=== PATIENT | female | born 1995 | race Caucasian/White ===

== ENCOUNTER 2020-07-16 23:45 | Inpatient (IN) ==
[2020-07-17] MEDS ORDERED: OXYTOCIN 30 UNITS/500 ML BAG IV PRN ×2 (00:12→04:06)
--- NOTE | 2020-07-17 00:18 | History & Physical Report ---
Date of Service July 17, 2020 Assessment & Plan (1) Active labor at term: (2) SROM (spontaneous rupture of membranes): (3) Supervision of normal intrauterine in primigravida: admit, iv, labs, likely desires epidural. fhts categ 1. History of Present Illness Chief Complaint: leaking fluid since 1025pm 07/16/20 and now with contractions Primary Care Provider: Karina Brock 25yo at 37wks ega presents to L&D with above cc. Leaking fluid and ctx worsened since then. Feels pain. No vb. +FM. PNC uncomplicated PNL RH pos, RI, GBS neg. OBH: g1 GYNH: nl paps no stds Allergies Allergy/AdvReac Type Severity Reaction Status Date / Time No Known Drug Allergies Allergy Verified 07/12/20 14:15 Home Medications Medication Instructions Recorded Confirmed Type [id number]-[id number]-omega 3-fat com #1 PO 01/25/20 07/12/20 History breast pump #1 ea 06/13/20 07/12/20 Rx Patient History Medical History (Updated 07/17/20 @ 00:15 by Razia Moody MD, FACOG) Syncope Family History Father Hypertension Grandfather (Maternal) Heart disease Social History Smoking Status: Never smoker marital status: marital status details: Rodolfo (27) [phone] Current Living Situation: Spouse Current Living Situation Comment: lives with spouse, no pets current occupational status: employed 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, at [employer] Feels Safe at Home: Yes Review of Systems no fever Physical Exam Constitutional: WD/WN, vitals as above Respiratory: normal respiratory effort, lungs clear to auscultation Cardiovascular: Rate/Rhythm: regular rate and regular rhythm Gastrointestinal (Abdomen): soft gravid nt Musculoskeletal: no edema nontender calves Neurologic: grossly normal Psychiatric: A+Ox3, euthymic affect Genitourinary: OB Exam Abdomen: + estimated weight (7#) Manual OB Exam: + cervical dilation 4 cm, + cervical effacement 90%, + station -1 and + amniotic fluid (Gross SROM) clear, nitrazine positive and ferning present OB Exam Monitor Tracing: + external FHT monitor used (140 mod variability ), + external uterine monitor used (q2), + category I and + normal FHT variability Results & Data ([facility]) Vital Signs (Past 12 Hours) Vital Signs Pulse BP 07/16/20 23:57 104 H 127/81 Coding Level of Care Code None Diagnoses Active labor at term SROM (spontaneous rupture of membranes) Supervision of normal intrauterine in primigravida Z34.00
[2020-07-17 00:29] LABS: Hematocrit (blood only) 37.3 % (37-47); Hemoglobin 12.6 g/dL (12.0-16.0); Mean Corpuscular Hemoglobin 30.1 pg (25-34); Mean Corpuscular Hgb Conc 33.8 g/dL (32-36); Mean Platelet Volume 10.5 fL (7.4-10.4); Platelet Count 211 K/uL (130-400); RDW Coefficient of Variation 13.3 % (11.5-14.5); RDW Standard Deviation 43.1 fL (36.4-46.3); Red Blood Count 4.19 M/uL (4.2-5.4); White Blood Count 12.16 K/uL (4.8-10.8)
[2020-07-17] MEDS: LACTATED RINGER'S 1,000 ML IV PRN ×2 (00:30→02:17)
[2020-07-17] MEDS ORDERED: SODIUM CHLORIDE 0.9% INJ 10 ML VIAL ONE (00:55)
[2020-07-17] MEDS ORDERED: ePHEDrine sulfate 50 MG/ML AMP ONE (00:55)
[2020-07-17] MEDS ORDERED: BUPIVACAINE 0.25% 30 ML VIAL ONE (00:56)
[2020-07-17] MEDS ORDERED: fentaNYL citrate 100 MCG/2 ML VIAL ONE (00:56)
[2020-07-17] MEDS ORDERED: fentaNYL 2MCG/ML ROPIVACAINE 1.25MG/ML 100 ML BAG EPI ONE (00:57)
--- NOTE | 2020-07-17 01:59 | Anesthesiology Consultation ---
Date of Service July 17, 2020 Assessment & Plan Chart Review Chart Review: Acceptable Risk for Labor Epidural Consults Requested none ASA ASA2E History Allergies Allergy/AdvReac Type Severity Reaction Status Date / Time No Known Drug Allergies Allergy Verified 07/12/20 14:15 Medications Home Medications Medication Instructions Recorded Confirmed Last Taken [id number]-omega 3-fat com #1 PO 01/25/20 07/12/20 Unknown breast pump #1 ea 06/13/20 07/12/20 Unknown Active Medications Generic Name Dose Route Start Last Admin Trade Name Freq PRN Reason Stop Dose Admin Lactated Ringer's 1,000 mls @ 125 mls/hr 07/17/20 00:12 07/17/20 00:30 Lr IV 07/19/20 00:11 999 mls/hr .Q8H PRN Administration L&D Protocol Protocol Past Medical History Medical History Syncope Past Family History Family History Father Hypertension Grandfather (Maternal) Heart disease Social History Smoking Status: Never smoker Physical Exam Vital Signs Last Vital Signs Temp 36.7 C 07/17/20 01:00 Pulse 108 H 07/17/20 01:56 Resp 18 07/17/20 00:30 BP 113/56 L 07/17/20 01:56 Pulse Ox 100 07/17/20 01:53 Testing Laboratory Results 07/17/20 00:18
[2020-07-17] MEDS ORDERED: fentaNYL 2MCG/ML ROPIVACAINE 1.25MG/ML 100 ML BAG EPI PRN (02:02)
[2020-07-17] MEDS ORDERED: ePHEDrine sulfate 50 MG/ML AMP IV PRN (02:02)
[2020-07-17] MEDS ORDERED: diphenhydrAMINE 50 MG/ML VIAL IV PRN (02:02)
[2020-07-17] MEDS ORDERED: NALOXONE HCL 0.4 MG/1 ML VIAL/CARP IV PRN (02:02)
[2020-07-17] MEDS ORDERED: NALOXONE HCL 1 MG in SODIUM CHLORIDE 0.9% 1000ML 1,000 ML IV PRN (02:02)
[2020-07-17] MEDS ORDERED: IBUPROFEN 600 MG TAB PO PRN (04:06)
[2020-07-17] MEDS ORDERED: ACETAMINOPHEN 325 MG TAB PO PRN (04:06)
[2020-07-17] MEDS ORDERED: oxyCODONE/ACETAMINOPHEN 5mg/325mg TAB PO PRN (04:06)
--- NOTE | 2020-07-17 04:09 | Delivery Summary ---
Vaginal Delivery Summary Date of Service July 17, 2020 Vaginal Delivery Summary The patient dilated to complete and pushed to deliver a viable female infant Apgars 8 and 9 via over intact perineum. Mouth and nose bulb suctioned at perineum. Shoulders and body delivered with ease. was vigorous and crying at . Cord clamped at 30 seconds of life and infant to maternal abdomen where the cord was then doubly clamped and cut. Placenta delivered spontaneously and intact, three-vessel cord. Hemostasis achieved with dilute pitocin and uterine massage and drainage of the bladder for approximately 800 cc under sterile conditions. Small vaginal laceration at introitus was bleeding and stitched with figure of eight suture of 3-0 vicryl for excellent hemostasis. Cervix and sulci intact. EBL 300 cc. Mother and baby stable in recovery. [facility] Vaginal Delivery Charge Delivery Type Details:
[2020-07-17] MEDS ORDERED: OXYTOCIN 20 UNITS in LACTATED RINGER'S 1,000 ML IV SCH (04:15)
[2020-07-17] MEDS ORDERED: HYDROCORTISONE ACETATE 25 MG SUPP PR PRN (04:45)
[2020-07-17] MEDS ORDERED: BENZOCAINE 20% AER SPR 82.5 GM CAN EXT PRN (04:45)
[2020-07-17] MEDS ORDERED: DIPHTHERIA/TETANUS/PERTUSSIS 0.5 ML SYR/VIAL IM ONE (04:45)
[2020-07-17] MEDS ORDERED: SUPERCREAM 0.870% 15 GM JAR EXT PRN (04:45)
--- NOTE | 2020-07-17 05:33 | Anesthesia Procedure Note ---
Date of Service July 17, 2020 Anesthesia Post Epidural Note Vital Signs Vital Signs: Temp Pulse Resp BP Pulse Ox 36.9 C 93 H 20 135/72 94 07/17/20 04:21 07/17/20 05:21 07/17/20 04:52 07/17/20 05:21 07/17/20 03:44 Pain Intensity Lower Abdomen: Pain Intensity: 5 Notes Mental Status: alert / awake / arousable Nausea / Vomiting: adequately controlled Pain: adequately controlled Airway Patency, RR, SpO2: stable & adequate BP & HR: stable & adequate Hydration State: stable & adequate Neuraxial Anesthesia: was administered and sensory block is resolving Anesthetic Complications: no major complications apparent and Pt Satisfied with anesthetic care Epidural: Removed without complications and With tip intact
[2020-07-17] MEDS: DOCUSATE SODIUM 100 MG CAP PO SCH ×2 (08:49→20:13)
--- NOTE | 2020-07-18 07:25 | Obstetrical Progress Note ---
Date of Service July 18, 2020 Assessment & Plan (1) examination following vaginal delivery: doing well, routine care. rh pos, ri, breast feeding. Day #:: 1 Subjective Ambulation: ambulating normally Voiding: no voiding problems Diet Tolerance:: regular diet Lochia:: Small Feeding Type:: breast feeding no pain issues Physical Exam Constitutional WD/WN, vitals as above Respiratory normal respiratory effort, lungs clear to auscultation Cardiovascular Rate/Rhythm: regular rate and regular rhythm Gastrointestinal (Abdomen) Inspection/Auscultation: abdomen normal to inspection Percussion/Palpation: abdomen soft; abdomen nontender Fundus firm 2cm down Musculoskeletal nt calves no edema Neurologic grossly normal Psychiatric A+Ox3, euthymic affect Results & Data ([facility]) Vital Signs (Past 12 Hours) Vital Signs Temp Pulse Resp BP Pulse Ox 07/18/20 04:50 98.2 F 81 16 117/76 98 07/18/20 01:05 98.2 F 79 16 125/68 98 07/17/20 20:25 98.2 F 91 H 18 114/65 97
[2020-07-18] MEDS: DOCUSATE SODIUM 100 MG CAP PO SCH (07:44)
--- NOTE | 2020-07-18 11:00 | Anesthesiology Progress Note ---
Date of Service July 18, 2020 Anesthesia Post Procedure Vital Signs Vital Signs: Temp Pulse Resp BP Pulse Ox 07/18/20 07:45 36.6 C 90 18 133/76 96 07/18/20 04:50 36.8 C 81 16 117/76 98 07/18/20 01:05 36.8 C 79 16 125/68 98 07/17/20 20:25 36.8 C 91 H 18 114/65 97 07/17/20 16:22 36.5 C 79 16 129/72 99 07/17/20 13:00 36.7 C 74 18 108/74 99 Pain Intensity Lower Abdomen: Pain Intensity: 0 Perineal: Pain Intensity: 1 Bilateral Nipple: Pain Intensity: 1 Transfer of Care Handoff Completed per policy Notes Mental Status: alert / awake / arousable Patient Amnestic to Procedure: Yes Nausea / Vomiting: adequately controlled Pain: adequately controlled Airway Patency, RR, SpO2: stable & adequate BP & HR: stable & adequate Hydration State: stable & adequate Neuraxial Anesthesia: was administered and sensory block resolved Anesthetic Complications: no major complications apparent and Pt Satisfied with anesthetic care
== END 2020-07-18 13:39 | disposition home or self-care (01) | DRG 807 ==
LOC: OPB 23:45 → 4S1 23:55 → 4S2 07-17 06:45
DX: Z37.0 Single live birth; O70.0 First degree perineal laceration during delivery; Z3A.37 37 weeks gestation of pregnancy; Z79.899 Other long term (current) drug therapy

== ENCOUNTER 2024-06-25 02:13 | Inpatient (IN) ==
[2024-06-25] MEDS ORDERED: LIDOCAINE 1% LOCAL 20 ML VIAL INFIL PRN (02:41)
[2024-06-25] MEDS ORDERED: OXYTOCIN 30 UNITS/NSS 30 UNITS/500 ML BAG IV PRN ×2 (02:41→10:06)
--- NOTE | 2024-06-25 02:43 | History & Physical Report ---
Date of Service June 25, 2024 Assessment & Plan (1) Normal labor: Plan admit for labor. fetus category one. desires epidural. arom when indicated. anticipate . History of Present Illness Chief Complaint: contractions Primary Care Provider: Reginalddariana Vinod Calderón is a 29yowf with iup at 39 6/7 who presents with contractions starting in the evening and now 1-2 minutes apart. Was 1cm in the office when checked last week. WAs Covid positive by home test yesterday. and Delivery Plans Hep B Non-Immune * Recommend Hep-B Vaccine COVID positive home test 06/23 OB Labs: Blood Type A Positive 11/11/23 Antibody Screen NEGATIVE 11/11/23 Hgb 11.1 g/dl (12.0-16.0) L 04/03/24 Hct 33.4 % (37.0-47.0) L 04/03/24 MCV 88.7 fL (80.0-100.0) 11/11/23 Plt Count 244 K/uL (130-400) 11/11/23 Rubella IgG Antibody Immune (Immune) 11/11/23 RPR Nonreactive (Nonreactive) 11/11/23 Treponema pallidum Ab Negative (Negative) 04/03/24 Hep Bs Antigen Neg (Neg) 12/21/19 Hep Bs Antigen NON-REACTIVE (NON-REACTIVE) 11/11/23 Hepatitis C Ab (EIA) NON-REACTIVE (NON-REACTIVE) 11/11/23 HIV 1&2 Ab/P24 Ag 4thGn Neg (Neg) 12/21/19 HIV (1&2) Ag & Ab Conf NON-REACTIVE (NON-REACTIVE) 11/11/23 Glucose 1 Hr 50 gm 118 mg/dl (70-130) 04/03/24 OB Optional Labs: Chlamydia trachomatis RNA Not Detected (NotDetected) 11/11/23 Neisseria gonorrhoeae RNA Not Detected (NotDetected) 11/11/23 Labs Reviewed: cf/sma neg in prior , HK low risk panorama--akhj declines msafp smp gbs negative. Allergies Allergy/AdvReac Type Severity Reaction Status Date / Time No Known Drug Allergies Allergy Verified 06/19/24 14:45 Home Medications Medication Instructions Recorded Confirmed Type JNU-[id number]-omega 3-fat com #1 1 tab PO QAM 01/25/20 06/19/24 History [Pre-Marisol Multivitamins/Minerals] cholecalciferol (vitamin D3) PO 11/01/23 06/19/24 History [Vitamin D3] Patient History Medical History Varicella vaccination Missed No known health problems Surgical History S/P dilatation and curettage x2 Hx of wisdom tooth extraction Family History Father Hypertension Grandfather (Maternal) Heart disease Denies family history of Ovarian cancer Breast cancer Colorectal cancer Social History Smoking Status: Never smoker Second Hand Exposure: No; Do You Dip or Chew Tobacco: No; Hx Alcohol Use: No Hx Substance Use: No Preferred Language: Malawian Communication Ability: Effective Visual Impairment: No Limitations Transformer Coil Winder Required: No Beliefs That Will Affect Care: None marital status: marital status details: Rodolfo (31) [phone] Current Living Situation: Spouse and Family Current Living Situation Comment: lives with spouse, daughter, no pets current occupational status: employed 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 Date GA wks Lbr Lgth wt Sex Type del Anes Place Del Prov ? Comment 07/17/20 37 7lb 0.7oz F Epi dural [facility] Dr. 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 cephalic per nursing toco--q3min efm--140s with mod variability, accels to 160s, no decels Results & Data Vital Signs (Past 12 Hours) Vital Signs Temp Pulse BP 06/25/24 02:25 114 H 127/76 06/25/24 02:22 36.8 C Code Status & VTE Plan VTE Prophylaxis Plan VTE Prophylaxis will be ordered: No Coding Level of Care Code None Diagnoses Normal labor O80; Z37.9
[2024-06-25] MEDS: SODIUM CHLORIDE 0.9% 1,000 ML IV SCH (03:00)
[2024-06-25] MEDS ORDERED: BUPIVACAINE 0.25% PF 30 ML VIAL EPI PRN (03:12)
[2024-06-25] MEDS ORDERED: NALBUPHINE HCL INJ 10 MG/ML AMP IV PRN (03:12)
[2024-06-25] MEDS ORDERED: LIDOCAINE 2% MPF LOCAL 5 ML VIAL EPI PRN (03:12)
[2024-06-25] MEDS ORDERED: NALOXONE HCL 0.4 MG/1 ML VIAL/CARP IV PRN (03:12)
[2024-06-25] MEDS ORDERED: SODIUM CHLORIDE 0.9% PF INJ 10 ML VIAL EPI PRN (03:12)
[2024-06-25] MEDS ORDERED: fentaNYL citrate PF 100 MCG/2 ML VIAL EPI PRN (03:12)
[2024-06-25] MEDS ORDERED: fentANYL 2 MCG/ML BUPIVacaine 0.125%-NSS 100ML BAG EPI PRN (03:12)
[2024-06-25] MEDS ORDERED: ePHEDrine sulfate 50 MG/ML AMP IV PRN (03:12)
[2024-06-25] MEDS ORDERED: ROPIVACAINE 0.5% PF 5 MG/ML 20 ML VIAL EPI PRN (03:12)
[2024-06-25] MEDS ORDERED: NALOXONE HCL 1 MG in SODIUM CHLORIDE 0.9% 1,000 ML IV PRN (03:12)
[2024-06-25] MEDS ORDERED: diphenhydrAMINE 50 MG/ML VIAL IV PRN (03:12)
[2024-06-25 03:13] LABS: Hematocrit (blood only) 35.4 % (37.0-47.0); Hemoglobin 11.6 g/dl (12.0-16.0); Mean Corpuscular Hemoglobin 28.6 pg (25.0-34.0); Mean Corpuscular Hgb Conc 32.8 g/dL (32.0-36.0); Mean Corpuscular Volume 87.2 fL (80.0-100.0); Mean Platelet Volume 10.8 fL (9.4-12.4); Platelet Count 172 K/uL (130-400); RDW Standard Deviation 40.9 fL (36.4-46.3); Red Blood Count 4.06 M/uL (4.20-5.40); White Blood Count 7.16 K/ul (4.8-10.8)
--- NOTE | 2024-06-25 03:19 | Anesthesiology Consultation ---
Date of Service June 25, 2024 Assessment & Plan Chart Review Chart Review: Patient NOT seen in Pre Admission Testing and Acceptable Risk for Labor Epidural Consults Requested none ASA ASA2 Proposed Anesthesia Anesthesia Type: Labor Epidural Risk / Benefits Reviewed With: PT / POA / Parent / Guardian, Accepts Plan and Informed Consent Obtained History Height/Weight Height: 5 ft 9 in Weight: 83.007 kg Allergies Allergy/AdvReac Type Severity Reaction Status Date / Time No Known Drug Allergies Allergy Verified 06/19/24 14:45 Medications Home Medications Medication Instructions Recorded Confirmed Last Taken ENK-ddzf-FI-omega 3-fat com #1 1 tab PO QAM 01/25/20 06/19/24 01/20/23 08:00 [Pre-Marisol Multivitamins/Minerals] cholecalciferol (vitamin D3) PO 11/01/23 06/19/24 Unknown [Vitamin D3] Active Medications Generic Name Dose Route Start Last Admin Trade Name Freq PRN Reason Stop Dose Admin Sodium Chloride 1,000 mls @ 80 mls/hr 06/25/24 03:15 06/25/24 03:33 Nss IV 06/26/24 03:14 80 mls/hr .[id number] NOELLE Infusion NPO Date Last Intake of Fluids: 06/25/24 Date Last Intake of Solids: 06/24/24 Time Last Intake of Solids: 17:00 Past Medical History Medical History Varicella vaccination Missed No known health problems Exercise / Class Metabolic Activity 1 > 8 Run/Swim/Ski/Tennis Past Family History Family History Father Hypertension Grandfather (Maternal) Heart disease Denies family history of Ovarian cancer Breast cancer Colorectal cancer Past Surgical History Surgical History S/P dilatation and curettage x2 Hx of wisdom tooth extraction Past Anesthesia History No Hx of Anesthesia Complications and No Family Hx of Anesthesia Complications History of PONV No Hx of PONV and No Hx of Motion Sickness Social History Smoking Status: Never smoker Do You Dip or Chew Tobacco: No Hx Alcohol Use: No Hx Substance Use: Yes substance use type: does not use Review of Systems ROS Unobtainable: All systems reviewed & are unremarkable except as noted in HPI & below Physical Exam Vital Signs Last Vital Signs Temp 36.8 C 06/25/24 02:48 Pulse 114 H 06/25/24 02:25 Resp 18 06/25/24 02:48 BP 127/76 06/25/24 02:25 ENMT Mouth: no TMJ abnormality Thyromental Distance: > or= 3.5 Finger Breadths Mallampati Class: II Neck normal visual inspection and trachea midline; neck extension not limited Respiratory normal respiratory effort Auscultation: lungs clear to auscultation bilaterally Cardiovascular Rate/Rhythm: regular rate and regular rhythm Heart Sounds: no murmur Musculoskeletal Spine: normal cervical ROM Extremities: full ROM of extremities Neurologic moves all extremities Psychiatric Orientation: alert and oriented x 3 Testing Laboratory Results 06/25/24 02:57
[2024-06-25 03:23] LABS: Adenovirus PCR Not Detected (NotDetected); Bordetella parapertussis PCR Not Detected (NotDetected); Bordetella pertussis PCR Not Detected (NotDetected); Chlamydia pneumoniae PCR Not Detected (NotDetected); Coronavirus 229E PCR Not Detected (NotDetected); Coronavirus CoV-2 (COVID19)PCR DETECTED (NotDetected); Coronavirus HKU1 PCR Not Detected (NotDetected); Coronavirus NL63 PCR Not Detected (NotDetected); Coronavirus OC43PCR Not Detected (NotDetected); Human Metapneumovirus PCR Not Detected (NotDetected); Influenza A PCR Not Detected (NotDetected); Influenza B PCR Not Detected (NotDetected); Mycoplasma pneumoniae PCR Not Detected (NotDetected); Parainfluenza Virus 1 PCR Not Detected (NotDetected); Parainfluenza Virus 2 PCR Not Detected (NotDetected); Parainfluenza Virus 3 PCR Not Detected (NotDetected); Parainfluenza Virus 4 PCR Not Detected (NotDetected); Respiratory Syncytial VirusPCR Not Detected (NotDetected); Rhinovirus/Enterovirus PCR Not Detected (NotDetected)
[2024-06-25] MEDS: fentANYL 2 MCG/ML BUPIVacaine 0.125%-NSS 100ML BAG ONE (03:47)
[2024-06-25] MEDS: fentaNYL citrate PF 100 MCG/2 ML VIAL ONE (03:48)
[2024-06-25] MEDS: LIDOCAINE 2%/EPINEPHRINE 1:200,000 20 ML PF ONE (03:49)
[2024-06-25] MEDS: BUPIVACAINE 0.25% PF 30 ML VIAL ONE (03:49)
[2024-06-25] MEDS: SODIUM CHLORIDE 0.9% PF INJ 10 ML VIAL ONE (03:50)
[2024-06-25] MEDS: ePHEDrine sulfate 50 MG/ML AMP ONE (03:50)
[2024-06-25] MEDS: fentaNYL citrate PF 100 MCG/2 ML VIAL EPI STA (04:18)
[2024-06-25] MEDS: LIDOCAINE 2%/EPINEPHRINE 1:200,000 20 ML PF EPI STA (04:18)
[2024-06-25] MEDS: SODIUM CHLORIDE 0.9% PF INJ 10 ML VIAL EPI STA (04:18)
[2024-06-25] MEDS: BUPIVACAINE 0.25% PF 30 ML VIAL EPI STA (04:18)
[2024-06-25] MEDS: ONDANSETRON INJ 2 MG/ML 2 ML VIAL ONE (04:35)
[2024-06-25] MEDS ORDERED: ONDANSETRON INJ 2 MG/ML 2 ML VIAL IV PRN (04:37)
--- NOTE | 2024-06-25 06:11 | Labor Progress Brief Note ---
Date of Service June 25, 2024 Subjective comfortable after epidural Assessment & Plan (1) Normal labor: Plan arom done, continue management, fetus category two, anticipate . Admission and Anticipated Discharge Date Admission Date: June 25, 2024 Physical Exam Physical Exam: cx--7/100/-2 arom--clear efm--140s with mod variability, accels to 170s, no decels toco--q3-4min Results & Data Vital Signs (Past 12 Hours) Vital Signs Temp Pulse Resp BP Pulse Ox 06/25/24 06:09 116 H 96 06/25/24 06:06 107 H 91/52 L 06/25/24 06:03 135 H 100 06/25/24 06:00 121 H 92 06/25/24 05:59 120 H 98 06/25/24 05:54 115 H 97 06/25/24 05:53 114 H 94 06/25/24 05:50 108 H 119/78 06/25/24 05:49 127 H 99 06/25/24 05:48 129 H 92 06/25/24 05:43 104 H 95 06/25/24 05:39 107 H 98 06/25/24 05:37 112 H 101/67 06/25/24 05:34 113 H 99 06/25/24 05:29 118 H 98 06/25/24 05:28 109 H 90 06/25/24 05:24 102 H 100 06/25/24 05:23 108 H 88 L 06/25/24 05:22 99 H 111/76 06/25/24 05:19 105 H 99 06/25/24 05:14 100 H 100 06/25/24 05:09 98 H 100 06/25/24 05:05 115 H 111/75 91 06/25/24 05:04 123 H 98 06/25/24 04:59 125 H 99 06/25/24 04:54 104 H 99 06/25/24 04:51 137 H 107/63 06/25/24 04:50 132 H 93 06/25/24 04:49 114 H 99 06/25/24 04:44 97 H 100 06/25/24 04:41 119 H 92 06/25/24 04:39 102 H 100 06/25/24 04:36 124 H 89 L 06/25/24 04:35 126 H 93/50 L 06/25/24 04:34 120 H 100 06/25/24 04:30 18 06/25/24 04:30 18 06/25/24 04:29 129 H 99 06/25/24 04:24 100 H 100 06/25/24 04:21 118 H 92 06/25/24 04:20 115 H 106/63 06/25/24 04:19 116 H 99 06/25/24 04:14 118 H 100 06/25/24 04:09 113 H 100 06/25/24 04:05 109 H 130/75 06/25/24 04:04 119 H 99 06/25/24 04:01 133 H 94 06/25/24 04:00 18 06/25/24 04:00 18 06/25/24 03:59 118 H 97 06/25/24 03:54 118 H 98 06/25/24 03:49 115 H 06/25/24 03:49 117 H 124/78 97 06/25/24 03:47 106 H 119/74 06/25/24 03:45 102 H 120/70 06/25/24 03:44 109 H 98 06/25/24 03:43 96 H 128/80 06/25/24 03:41 108 H 127/84 06/25/24 03:39 113 H 06/25/24 03:39 105 H 139/84 99 06/25/24 03:38 106 H 133/84 06/25/24 03:34 130 H 100 06/25/24 03:29 126 H 97 06/25/24 02:48 36.8 C 18 06/25/24 02:25 114 H 127/76 06/25/24 02:22 36.8 C Coding Level of Care Code None Diagnoses Normal labor O80; Z37.9
[2024-06-25] MEDS: OXYTOCIN 30 UNITS/NSS 30 UNITS/500 ML BAG IV PRN (08:21)
--- NOTE | 2024-06-25 09:35 | Delivery Summary ---
Vaginal Delivery Summary Date of Service June 25, 2024 Vaginal Delivery Summary The patient dilated to complete and pushed to deliver a viable female infant Apgars 8 and 9 via over intact perineum. Mouth and nose bulb suctioned at perineum. Shoulders and body delivered with ease. was vigorous and crying at . Cord clamped at 30 seconds of life and infant to maternal abdomen where the cord was then doubly clamped and cut. Placenta delivered spontaneously and intact, three-vessel cord. Hemostasis achieved with dilute pitocin and uterine massage. Small vaginal laceration reapproximated with single suture of 3-0 vicryl. Cervix and sulci intact. QBL 206 cc. Mother and baby stable in recovery. [facility] Vaginal Delivery Charge Delivery Type Details:
[2024-06-25] MEDS ORDERED: HYDROCORTISONE ACETATE 25 MG SUPP PR PRN (10:06)
[2024-06-25] MEDS ORDERED: ACETAMINOPHEN 325 MG TAB PO PRN (10:06)
[2024-06-25] MEDS ORDERED: oxyCODONE/ACETAMINOPHEN 5mg/325mg TAB PO PRN (10:06)
--- NOTE | 2024-06-25 10:19 | Anesthesia Procedure Note ---
Date of Service June 25, 2024 Anesthesia Post Epidural Note Vital Signs Vital Signs: Temp Pulse Resp BP Pulse Ox 36.8 C 136 H 18 100/75 99 06/25/24 09:00 06/25/24 09:50 06/25/24 09:00 06/25/24 10:05 06/25/24 09:33 Notes Mental Status: alert / awake / arousable and participated in evaluation Nausea / Vomiting: adequately controlled Pain: adequately controlled Airway Patency, RR, SpO2: stable & adequate BP & HR: stable & adequate Hydration State: stable & adequate Neuraxial Anesthesia: was administered and sensory block is resolving Anesthetic Complications: no major complications apparent Epidural: Removed without complications and With tip intact
[2024-06-25] MEDS: BENZOCAINE 20% SPRY 85 APPLN/85 GM CAN EXT PRN (11:33)
[2024-06-25] MEDS: IBUPROFEN 600 MG TAB PO PRN (11:33)
[2024-06-25] MEDS: DIPHTHER/TETAN/PERTUS Vaccine (Tdap, Adol/Adult) 0.5mL IM ONE (11:33)
[2024-06-25 19:12] VITALS: RESP 16
[2024-06-25] MEDS: DOCUSATE SODIUM 100 MG CAP PO SCH (20:36)
[2024-06-26] MEDS: guaiFENesin 600 MG TABCR PO PRN (00:23)
[2024-06-26 04:07] VITALS: O2SAT 99
--- NOTE | 2024-06-26 07:49 | Obstetrical Progress Note ---
Date of Service June 26, 2024 Assessment & Plan (1) Normal spontaneous vaginal delivery: (2) Lab test positive for detection of COVID-19 virus: Plan Both mom and baby doing well. Discharge today as per protocol. Follow up after 6 weeks. Admission and Anticipated Discharge Date Admission Date: June 25, 2024 Supervising Physician Co-Signing Physician Notes Resident Physician Supervision Note: I was present with Dr. Thao during the history and exam. I discussed the case with the resident and agree with the findings and plan as documented in the note. Any exceptions or clarifications are listed here: stable routine care. desires dc home. abd soft ff 2 down nt, ext nt calves. ppd#1 s/p , instructio ns reviewed. f/u 6wk pp. Documented By: Razia Moody MD, FACOG Subjective #1PPD following at 39+6 WGA. No active complains Both mom and baby doing well. Pain: Mild, intermittent Lochia: Moderate Diet: Regular Ob diet Bowel Movement: Not yet Gas: Aware of passing, no abdominal distension Peeing: Normal, no bladder distension Ambulation: Normally Review of Systems Review of Systems: No SOB, chest pain, leg pain No dizziness, headache, palpitation No Blurring of vision , fever Physical Exam Physical Exam: General: Alert and oriented. No acute distress. CVS: S1 S2+ No murmurs, regular rhythm. Respiratory: CTA bilaterally. No rhonchi, wheezes, or crackles. No increased work of breathing. Abdomen: Bowel sound +. Soft, nontender Uterus: Fundus firm and palpable few cm below the umbilicus. Lower extremities: No LE edema. No deep calf pain. Results & Data Vital Signs (Past 12 Hours) Vital Signs Temp Pulse Resp BP Pulse Ox O2 Del Method 06/26/24 04:06 36.8 C 87 16 116/84 99 Room Air 06/25/24 23:46 36.7 C 83 16 115/73 97 Room Air
[2024-06-26 08:18] VITALS: BP 136/84; PULSE 77; TEMP 97.7
[2024-06-26] MEDS: PRENATAL VITAMIN 1 TAB PO SCH (08:30)
[2024-06-26] MEDS ORDERED: bisacodyL 5 MG TABEC PO SCH (20:00)
== END 2024-06-26 12:25 | disposition home or self-care (01) | DRG 805 ==
LOC: OPB 02:13 → 4S1 02:20 → 4E1 12:30
DX: O70.0 First degree perineal laceration during delivery; O98.52 Other viral diseases complicating childbirth; Z37.0 Single live birth; U07.1 COVID-19; Z3A.39 39 weeks gestation of pregnancy